=== PATIENT | male | born 1995 | race Hispanic/Latino ===

== ENCOUNTER 2018-01-20 01:26 | Emergency (ER) | payer OTHER ==
[2018-01-20] MEDS ORDERED: MEPERIDINE HCL 50 MG/ML AMP ONE (02:06)
[2018-01-20] MEDS ORDERED: ONDANSETRON 4 MG (ODT) TAB ONE (02:06)
[2018-01-20] MEDS ORDERED: MEPERIDINE HCL 25 MG/0.5 ML ONE (02:06)
[2018-01-20 02:33] LABS: Urine Blood TRACE (NEG); Urine Glucose NEGATIVE (NEG); Urine Protein NEGATIVE (NEG)
[2018-01-20] MEDS ORDERED: KETOROLAC 30 MG/ML INJ ONE (03:26)
--- NOTE | 2018-01-20 03:31 | ER ---
Nurse's Notes [facility] Name: Hakan Ocasio IV Age: 22 yrs Sex: Male : 1995 Arrival Date: 01/20/2018 Time: :27 Bed 7 Private MD: Wm Jones Diagnosis: Acute low back pain. Possoble prolapsed intervertebral disc Presentation: 01/20 01:34 Presenting complaint: Patient states: that he was just sitting around and chilling then fc his back started to hurt all the way across his lower back. Also having right leg numbness. Denies any injury or lifting anything heavy. Transition of care: patient was not received from another setting of care. Onset of symptoms was January 19, 2018 at 15:00. Risk Assessment: Do you want to hurt yourself or someone else? Patient reports no desire to harm self or others. Initial Sepsis Screen: Does the patient meet any 2 criteria? No. Patient's initial sepsis screen is negative. Does the patient have a suspected source of infection? No. Patient's initial sepsis screen is negative. Care prior to arrival: None. 01:34 Method Of Arrival: Ambulatory 01:34 Acuity: LAMIN 4 fc Historical: - Allergies: 01:36 No Known Allergies; fc - Home Meds: 01:36 None [Active]; fc - PMHx: 01:36 None; fc - PSHx: 01:36 None; fc - Immunization history:: Last tetanus immunization: up to date Flu vaccine is not up to date. - Social history:: Smoking status: Patient/guardian denies using tobacco, Patient/guardian denies using alcohol, street drugs. - Ebola Screening: : Patient negative for fever greater than or equal to 101.5 degrees Fahrenheit, and additional compatible Ebola Virus Disease symptoms Patient denies exposure to infectious person Patient denies travel to an Ebola-affected area in the 21 days before illness onset. Screenin:37 Abuse screen: Denies threats or abuse. Nutritional screening: No deficits noted. fc Tuberculosis screening: No symptoms or risk factors identified. Fall Risk None identified. Assessment: 01:36 General: Appears in no apparent distress. uncomfortable, Behavior is calm, cooperative, jd3 appropriate for age. Pain: Complains of pain in back Quality of pain is described as sharp, shooting, Aggravated by increased activity. Neuro: Level of Consciousness is awake, alert, obeys commands, Oriented to person, place, time, situation. Cardiovascular: Capillary refill < 3 seconds Patient's skin is warm and dry. Respiratory: Airway is patent Respiratory effort is even, unlabored, Respiratory pattern is regular, symmetrical. GI: No signs and/or symptoms were reported involving the gastrointestinal system. Abdomen is round non-distended. : No signs and/or symptoms were reported regarding the genitourinary system. EENT: No signs and/or symptoms were reported regarding the EENT system. Derm: Skin is intact, Skin is dry, Skin is normal, Skin temperature is warm. Musculoskeletal: Circulation, motion, and sensation intact. Range of motion: intact in all extremities. 02:59 Reassessment: Patient appears in no apparent distress at this time. No changes from jd3 previously documented assessment. Patient and/or family updated on plan of care and expected duration. Pain level reassessed. Patient is alert, oriented x 3, equal unlabored respirations, skin warm/dry/pink. Vital Signs: 01:36 BP 158 / 102; Pulse 82; Resp 18; Temp 98.3(O); Pulse Ox 100% on R/A; Weight 90.72 kg fc (R); Height 5 ft. 8 in. (172.72 cm) (R); Pain 10/10; 02:59 BP 113 / 78; Pulse 80; Resp 17 S; Pulse Ox 100% on R/A; jd3 01:36 Body Mass Index 30.41 (90.72 kg, 172.72 cm) ED Course: 01:27 Patient arrived in ED. am2 01:27 Wm Jones MD is Private Physician. am2 01:29 Jay Salgado MD is Attending Physician. pkl 01:36 Triage completed. fc 01:36 Galileo Craft RN is Primary Nurse. jd3 01:36 Arm band placed on Patient placed in an exam room, on a stretcher. fc 01:37 Patient has correct armband on for positive identification. Bed in low position. Call light in reach. 02:07 Urine collected: clean catch specimen, clear. cb2 02:26 CT Stone Protocol In Process Unspecified. EDMS 02:30 CT completed. Patient tolerated procedure well. Patient moved to CT via wheelchair. Patient moved back from CT. 03:29 Wm Jones MD is Referral Physician. pkl 03:40 No provider procedures requiring assistance completed. Patient did not have IV access jd3 during this emergency room visit. Administered Medications: 02:04 Drug: Demerol 75 mg Route: IM; Site: left deltoid; jd3 03:00 Follow up: Response: No adverse reaction jd3 02:04 Drug: Zofran 4 mg Route: PO; jd3 03:00 Follow up: Response: No adverse reaction jd3 03:23 Drug: TORadol 60 mg Route: IM; Site: right gluteus; jd3 03:41 Follow up: Response: No adverse reaction jd3 Outcome: 03:30 Discharge ordered by MD. pkl 03:40 Discharged to home ambulatory, with family. jd3 03:40 Condition: stable 03:40 Discharge instructions given to patient, family, Instructed on discharge instructions, follow up and referral plans. medication usage, Demonstrated understanding of instructions, follow-up care, medications, Prescriptions given X 2. 03:41 Patient left the ED. jd3 Signatures: Dispatcher [employer] EDMS Jay Salgado MD MD pkl Mendel Thomas Felicia, RN RN Christina Prater Christian cb2 Davies, Jonathon RN RN jd3
--- NOTE | 2018-01-20 03:31 | EDPHYS ---
Physician Documentation [facility] Name: Haakn Ocasio IV Age: 22 yrs Sex: Male : 1995 Arrival Date: 01/20/2018 Time: :27 Bed 7 Private MD: Wm Jones ED Physician Jay Salgado HPI: 01/20 01:56 This 22 yrs old Male presents to ER via Ambulatory with complaints of Low Back pkl Pain, Leg Pain. 01:56 The patient presents with pain that is acute, with no known mechanism of injury. The pkl symptoms are located in the low back. The pain radiates to the right thigh. Onset: The symptoms/episode began/occurred today. The patient has not experienced similar symptoms in the past. Historical: - Allergies: 01:36 No Known Allergies; fc - Home Meds: 01:36 None [Active]; fc - PMHx: 01:36 None; fc - PSHx: 01:36 None; fc - Immunization history:: Last tetanus immunization: up to date Flu vaccine is not up to date. - Social history:: Smoking status: Patient/guardian denies using tobacco, Patient/guardian denies using alcohol, street drugs. - Ebola Screening: : Patient negative for fever greater than or equal to 101.5 degrees Fahrenheit, and additional compatible Ebola Virus Disease symptoms Patient denies exposure to infectious person Patient denies travel to an Ebola-affected area in the 21 days before illness onset. ROS: 01:56 Eyes: Negative for injury, pain, redness, and discharge, ENT: Negative for injury, pkl pain, and discharge, Neck: Negative for injury, pain, and swelling, Cardiovascular: Negative for chest pain, palpitations, and edema, Respiratory: Negative for shortness of breath, cough, wheezing, and pleuritic chest pain, Abdomen/GI: Negative for abdominal pain, nausea, vomiting, diarrhea, and constipation. 01:56 Back: Positive for of the lower back. 01:56 : Negative for urinary symptoms. 01:56 MS/extremity: Negative for acute changes. 01:56 Skin: Negative for rash. 01:56 Neuro: Negative for altered mental status. Exam: 01:56 Head/Face: Normocephalic, atraumatic. Eyes: Pupils equal round and reactive to light, pkl extra-ocular motions intact. Lids and lashes normal. Conjunctiva and sclera are non-icteric and not injected. Cornea within normal limits. Periorbital areas with no swelling, redness, or edema. ENT: Nares patent. No nasal discharge, no septal abnormalities noted. Tympanic membranes are normal and external auditory canals are clear. Oropharynx with no redness, swelling, or masses, exudates, or evidence of obstruction, uvula midline. Mucous membranes moist. Neck: Trachea midline, no thyromegaly or masses palpated, and no cervical lymphadenopathy. Supple, full range of motion without nuchal rigidity, or vertebral point tenderness. No Meningismus. Chest/axilla: Normal chest wall appearance and motion. Nontender with no deformity. No lesions are appreciated. Cardiovascular: Regular rate and rhythm with a normal S1 and S2. No gallops, murmurs, or rubs. Normal PMI, no JVD. No pulse deficits. Respiratory: Lungs have equal breath sounds bilaterally, clear to auscultation and percussion. No rales, rhonchi or wheezes noted. No increased work of breathing, no retractions or nasal flaring. Abdomen/GI: Soft, non-tender, with normal bowel sounds. No distension or tympany. No guarding or rebound. No evidence of tenderness throughout. 01:56 Back: pain, that is moderate, of the lower back, Straight leg raises: right lower extremity illicits pain, at 30 degrees. 01:56 : Exam negative for acute changes. 01:56 Musculoskeletal/extremity: Exam is negative for acute changes. 01:56 Skin: Exam negative for rash. 01:56 Neuro: Orientation: is normal, Memory: is normal, Motor: is normal. Vital Signs: 01:36 BP 158 / 102; Pulse 82; Resp 18; Temp 98.3(O); Pulse Ox 100% on R/A; Weight 90.72 kg fc (R); Height 5 ft. 8 in. (172.72 cm) (R); Pain 10/10; 02:59 BP 113 / 78; Pulse 80; Resp 17 S; Pulse Ox 100% on R/A; jd3 01:36 Body Mass Index 30.41 (90.72 kg, 172.72 cm) MDM: 01:30 Patient medically screened. pkl 03:28 Data reviewed: vital signs, nurses notes, lab test result(s), radiologic studies, CT pkl scan. ED course: Discussed lab. and CT Scan results. Advised MRI lumbar spines if not better.. 01/20 02:20 Order name: Urine Dipstick--Ancillary (enter results); Complete Time: 03:18 ms 01/20 02:06 Order name: CT Stone Protocol pkl Administered Medications: 02:04 Drug: Demerol 75 mg Route: IM; Site: left deltoid; jd3 03:00 Follow up: Response: No adverse reaction jd3 02:04 Drug: Zofran 4 mg Route: PO; jd3 03:00 Follow up: Response: No adverse reaction jd3 03:23 Drug: TORadol 60 mg Route: IM; Site: right gluteus; jd3 03:41 Follow up: Response: No adverse reaction jd3 Disposition: 01/20/18 03:30 Discharged to Home. Impression: Acute low back pain. Possoble prolapsed intervertebral disc. - Condition is Stable. - Prescriptions for Ultram 50 mg Oral Tablet - take 1 tablet by ORAL route every 8 hours As needed; 30 tablet. Cyclobenzaprine 5 mg Oral Tablet - take 1 tablet by ORAL route 2 times per day As needed; 15 tablet. - Medication Reconciliation Form, Thank You Letter, Antibiotic Education, Prescription Opioid Use form. - Follow up: Wm Jones MD; When: 2 - 3 days; Reason: Re-evaluation by your physician. - Problem is new. - Symptoms have improved. Signatures: Dispatcher [employer] EDMS Jay Salgado MD MD pkMamie Rdz RN RN Galileo Craft RN RN jd3 Corrections: (The following items were deleted from the chart) 03:41 03:30 01/20/2018 03:30 Discharged to Home. Impression: Acute low back pain. Possoble jd3 prolapsed intervertebral disc. Condition is Stable. Forms are Medication Reconciliation Form, Thank You Letter, Antibiotic Education, Prescription Opioid Use. Follow up: Wm Jones; When: 2 - 3 days; Reason: Re-evaluation by your physician. Problem is new. Symptoms have improved. pkl
[2018-01-20 03:45] VITALS: TEMP 98.3; O2SAT 100
[2018-01-20 03:47] VITALS: BP 113/78
--- NOTE | 2018-01-20 07:06 | RAD REPORT ---
EXAM DESCRIPTION: CT - Stone Protocol - 01/20/2018 4:15 am CLINICAL HISTORY: Abdominal pain, back pain A preliminary report was provided at the time of the study and reviewed prior to final report. COMPARISON: October 2014 TECHNIQUE: Axial 5 mm thick images were obtained without oral or IV contrast. The [id number] span s the entirety of the system partially obscuring uppermost abdomen and lung bases. All CT scans are performed using dose optimization technique as appropriate and may include automated exposure control or mA/KV adjustment according to patient size. FINDINGS: No hydronephrosis is present and no obstructing ureteral calculi. No suspicious renal mass es. Isodense masses and pyelonephritis are not excluded on a stone protocol CT scan. No urinary bladd er suspicious finding. Imaged portions of the liver, spleen and pancreas show no suspicious findings on non-contrast imaging . No gallbladder or biliary tree abnormality identified. No significant adrenal finding. No suspicious bowel findings. Appendix is normal. No acute GI process. No mass or bulky lymphadenopathy. A small fat only umbilical hernia is present. No free air, free flu id or inflammatory stranding. No significant bony abnormality. IMPRESSION: Negative CT stone protocol study for acute or significant finding. Isodense masses and pyelonephritis are not excluded on stone protocol technique.
== END 2018-01-20 03:41 | disposition home or self-care (01) ==
LOC: ER 01:26
DX: M54.5 Low back pain (principal)
CPT/HCPCS: 74176; 76377; 81003; 96372; 99284; J2175

== ENCOUNTER 2018-06-09 08:22 | Emergency (ER) | payer OTHER ==
--- NOTE | 2018-06-09 09:36 | ER ---
Nurse's Notes [facility] Name: Hakan Ocasio IV Age: 22 yrs Sex: Male : 1995 Arrival Date: 06/09/2018 Time: 08:26 Bed 12 Private MD: Wm Jones Diagnosis: Acute pharyngitis Presentation: 06/09 08:46 Presenting complaint: Patient states: sore throat, cough, congestion X 1 week. iw Transition of care: patient was not received from another setting of care. Onset of symptoms was June 02, 2018. Risk Assessment: Do you want to hurt yourself or someone else? Patient reports no desire to harm self or others. Initial Sepsis Screen: Does the patient meet any 2 criteria? No. Patient's initial sepsis screen is negative. Does the patient have a suspected source of infection? No. Patient's initial sepsis screen is negative. Care prior to arrival: None. 08:46 Method Of Arrival: Ambulatory iw 08:46 Acuity: LAMIN 4 iw Triage Assessment: 09:00 General: Appears in no apparent distress. Behavior is calm. iw Historical: - Allergies: 08:47 No Known Allergies; iw - Home Meds: 08:47 None [Active]; iw - PMHx: 08:47 None; iw - PSHx: 08:47 None; iw - Immunization history:: Adult Immunizations up to date. - Social history:: Smoking status: Patient/guardian denies using tobacco. - Ebola Screening: : Patient negative for fever greater than or equal to 101.5 degrees Fahrenheit, and additional compatible Ebola Virus Disease symptoms Patient denies exposure to infectious person Patient denies travel to an Ebola-affected area in the 21 days before illness onset No symptoms or risks identified at this time. Screenin:58 Abuse screen: Denies threats or abuse. Denies injuries from another. Nutritional iw screening: No deficits noted. Tuberculosis screening: No symptoms or risk factors identified. Fall Risk None identified. Assessment: 08:50 General: Appears in no apparent distress. comfortable, Behavior is calm, cooperative. iw Pain: Complains of pain in throat. Neuro: Level of Consciousness is awake, alert, obeys commands, Oriented to person, place, time, situation, Moves all extremities. Full function. Cardiovascular: Patient's skin is warm and dry. Respiratory: Airway is patent Respiratory effort is even, unlabored, Breath sounds are clear bilaterally. EENT: Throat is reddened has enlarged tonsils bilaterally with gag reflex present. Derm: Skin is intact, is healthy with good turgor, Skin is. Musculoskeletal: Range of motion: intact in all extremities. Vital Signs: 08:47 BP 146 / 85; Pulse 98; Resp 16 S; Pulse Ox 100% on R/A; Weight 90.72 kg; Height 5 ft. 9 iw in. (175.26 cm); Pain 10/10; 08:47 Body Mass Index 29.53 (90.72 kg, 175.26 cm) iw ED Course: 08:26 Patient arrived in ED. mr 08:26 Wm Jones MD is Private Physician. mr 08:36 [facility] pm1 08:36 Judd Kay MD is Attending Physician. pm1 08:43 Joanne Carmichael RN is Primary Nurse. iw 08:47 Triage completed. iw 08:47 Arm band placed on. iw 08:50 Patient has correct armband on for positive identification. iw 09:58 No provider procedures requiring assistance completed. Patient did not have IV access iw during this emergency room visit. Administered Medications: No medications were administered Outcome: 09:35 Discharge ordered by MD. pm1 09:58 Discharged to home ambulatory. iw 09:58 Condition: good 09:58 Discharge instructions given to patient, Instructed on discharge instructions, follow up and referral plans. medication usage, Demonstrated understanding of instructions, follow-up care, medications, Prescriptions given X 1. 09:59 Patient left the ED. iw Signatures: Lexii Dailey mr Joanne Carmichael, ТАТЬЯНА RN iw Doyle Gonzalez NP AUT[employer] SERVICER pm1
--- NOTE | 2018-06-09 09:36 | EDPHYS ---
Physician Documentation [facility] Name: Hakan Ocasio IV Age: 22 yrs Sex: Male : 1995 Arrival Date: 06/09/2018 Time: 08:26 Bed 12 Private MD: Wm Jones ED Physician Judd Kay HPI: 06/09 09:32 This 22 yrs old Male presents to ER via Ambulatory with complaints of Sore pm1 Throat, Congestion. 09:32 The patient presents with sore throat. The patient describes throat pain as raw, pm1 scratchy. Onset: The symptoms/episode began/occurred 1 week(s) ago. Severity of symptoms: in the emergency department the symptoms are unchanged. Modifying factors: The symptoms are alleviated by nothing, the symptoms are aggravated by swallowing, Patient's oral intake status: good unaware of sick contact. Associated signs and symptoms: Pertinent positives: cough, fever, Pertinent negatives diarrhea, dysphagia, earache, headache, nausea, shortness of breath, vomiting. The patient has not recently seen a physician. Historical: - Allergies: 08:47 No Known Allergies; iw - Home Meds: 08:47 None [Active]; iw - PMHx: 08:47 None; iw - PSHx: 08:47 None; iw - Immunization history:: Adult Immunizations up to date. - Social history:: Smoking status: Patient/guardian denies using tobacco. - Ebola Screening: : Patient negative for fever greater than or equal to 101.5 degrees Fahrenheit, and additional compatible Ebola Virus Disease symptoms Patient denies exposure to infectious person Patient denies travel to an Ebola-affected area in the 21 days before illness onset No symptoms or risks identified at this time. ROS: 09:32 Eyes: Negative for injury, pain, redness, and discharge. pm1 09:32 Neck: Negative for injury, pain, and swelling, Cardiovascular: Negative for chest pain, palpitations, and edema. 09:32 Abdomen/GI: Negative for abdominal pain, nausea, vomiting, diarrhea, and constipation, Back: Negative for injury and pain, : Negative for injury, bleeding, discharge, and swelling, MS/Extremity: Negative for injury and deformity, Skin: Negative for injury, rash, and discoloration, Neuro: Negative for headache, weakness, numbness, tingling, and seizure. 09:32 Constitutional: Positive for fever, Negative for poor PO intake. 09:32 ENT: Positive for sore throat, Negative for drainage from ear(s), ear pain. 09:32 Respiratory: Positive for cough, Negative for shortness of breath, sputum production, wheezing. Exam: 09:32 Constitutional: This is a well developed, well nourished patient who is awake, alert, pm1 and in no acute distress. Head/Face: Normocephalic, atraumatic. Eyes: Pupils equal round and reactive to light, extra-ocular motions intact. Lids and lashes normal. Conjunctiva and sclera are non-icteric and not injected. Cornea within normal limits. Periorbital areas with no swelling, redness, or edema. ENT: Nares patent. No nasal discharge, no septal abnormalities noted. Tympanic membranes are normal and external auditory canals are clear. Oropharynx with no redness, swelling, or masses, exudates, or evidence of obstruction, uvula midline. Mucous membranes moist. Neck: Trachea midline, no thyromegaly or masses palpated, and no cervical lymphadenopathy. Supple, full range of motion without nuchal rigidity, or vertebral point tenderness. No Meningismus. Chest/axilla: Normal chest wall appearance and motion. Nontender with no deformity. No lesions are appreciated. Cardiovascular: Regular rate and rhythm with a normal S1 and S2. No gallops, murmurs, or rubs. Normal PMI, no JVD. No pulse deficits. Respiratory: Lungs have equal breath sounds bilaterally, clear to auscultation and percussion. No rales, rhonchi or wheezes noted. No increased work of breathing, no retractions or nasal flaring. Abdomen/GI: Soft, non-tender, with normal bowel sounds. No distension or tympany. No guarding or rebound. No evidence of tenderness throughout. Back: No spinal tenderness. No costovertebral tenderness. Full range of motion. Skin: Warm, dry with normal turgor. Normal color with no rashes, no lesions, and no evidence of cellulitis. MS/ Extremity: Pulses equal, no cyanosis. Neurovascular intact. Full, normal range of motion. 09:32 Neuro: Orientation: is normal, Motor: is normal, moves all fours. Vital Signs: 08:47 BP 146 / 85; Pulse 98; Resp 16 S; Pulse Ox 100% on R/A; Weight 90.72 kg; Height 5 ft. 9 iw in. (175.26 cm); Pain 10/10; 08:47 Body Mass Index 29.53 (90.72 kg, 175.26 cm) iw MDM: 08:36 Patient medically screened. pm1 09:34 Data reviewed: vital signs. Data interpreted: Pulse oximetry: on room air is 100 %. pm1 Interpretation: normal. Counseling: I had a detailed discussion with the patient and/or guardian regarding: the historical points, exam findings, and any diagnostic results supporting the discharge/admit diagnosis, lab results, the need for outpatient follow up, to return to the emergency department if symptoms worsen or persist or if there are any questions or concerns that arise at home. 06/09 08:43 Order name: Flu; Complete Time: 09:25 pm1 06/09 08:43 Order name: Strep; Complete Time: 09:05 pm1 06/09 09:05 Order name: Throat Culture EDMS Administered Medications: No medications were administered Disposition: 11:56 Co-signature as Attending Physician, Judd Kay MD I agree with the assessment and [facility] plan of care. Disposition: 06/09/18 09:35 Discharged to Home. Impression: Acute pharyngitis. - Condition is Stable. - Discharge Instructions: Pharyngitis. - Prescriptions for Tessalon Perles 100 mg Oral Capsule - take 1 capsule by ORAL route every 8 hours As needed; 15 capsule. - Medication Reconciliation Form, Thank You Letter, Antibiotic Education form. - Follow up: Emergency Department; When: As needed; Reason: Worsening of condition. Follow up: Private Physician; When: 2 - 3 days; Reason: Recheck today's complaints, Continuance of care, Re-evaluation by your physician. - Problem is new. - Symptoms have improved. Signatures: Dispatcher [employer] EDTN Judd Kay MD MD cha Williams, Irene, RN RN iw Doyle Gonzalez NP [employer]ACHINE TENDER pm1 Corrections: (The following items were deleted from the chart) 09:59 09:35 06/09/2018 09:35 Discharged to Home. Impression: Acute pharyngitis. Condition is iw Stable. Forms are Medication Reconciliation Form, Thank You Letter, Antibiotic Education, Prescription Opioid Use. Follow up: Emergency Department; When: As needed; Reason: Worsening of condition. Follow up: Private Physician; When: 2 - 3 days; Reason: Recheck today's complaints, Continuance of care, Re-evaluation by your physician. Problem is new. Symptoms have improved. pm1
[2018-06-09 10:07] VITALS: BP 146/85; O2SAT 100
== END 2018-06-09 09:59 | disposition home or self-care (01) ==
LOC: ER 08:22
DX: J02.9 Acute pharyngitis, unspecified (principal)
CPT/HCPCS: 87070; 87081; 87804; 99281

== ENCOUNTER 2018-08-27 21:08 | Emergency (ER) | payer OTHER ==
[2018-08-27] MEDS ORDERED: ONDANSETRON 4 MG/2 ML VIAL ONE (21:47)
[2018-08-27] MEDS ORDERED: NA CHLORIDE 0.9% 1,000 ML ONE (21:47)
[2018-08-27 21:50] LABS: Absolute Lymphocytes (CBC) 3.3 K/uL (0.7-4.9); Absolute Monocytes 0.5 K/uL (0.1-1.3); Absolute Neutrophil 3.4 K/uL (1.8-8.0); Basophils % 0.5 % (0-1.3); Lymphocytes % 45.2 % (15.3-44.8); MPV 10.3 fL (7.6-11.3); RBC Red Blood Cell Count 4.83 M/uL (4.33-5.43)
[2018-08-27] MEDS ORDERED: MORPHINE 4 MG/ML SYR ONE (21:53)
[2018-08-27 22:07] LABS: Albumin 4.2 g/dL (3.4-5.0); Bilirubin Direct 0.2 mg/dL (0-0.2); Bilirubin Total 0.4 mg/dL (0.2-1.0); Potassium 3.8 mmol/L (3.5-5.1); Protein, Total 7.6 g/dL (6.4-8.2)
[2018-08-27 22:52] LABS: Urine Blood NEGATIVE (NEG); Urine Glucose NEGATIVE (NEG); Urine Protein 1+ (NEG); Urine pH 7.5 (5.0-7.0)
--- NOTE | 2018-08-27 22:54 | EDPHYS ---
Physician Documentation [facility] Name: Hakan Ocasio IV Age: 23 yrs Sex: Male : 1995 Arrival Date: 08/27/2018 Time: 21:10 Bed 17 Private MD: ED Physician Brooks Looney HPI: 08/27 21:28 This 23 yrs old Male presents to ER via Ambulatory with complaints of Back jmm Pain. 21:28 The patient presents with pain that is acute. Onset: The symptoms/episode jmm began/occurred gradually, 1 week(s) ago. Associated signs and symptoms: Pertinent positives: vomiting, Pertinent negatives: fever. This is a 23 year old male that presents to the ED with complaints of left flank pain beginning approx 1 week ago. Patient states working out daily but states he did cardio over the past week. 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 Patient is concerned about his kidney. Denies fever. . Historical: - Allergies: 21:30 No Known Allergies; jd3 - Home Meds: 21:30 None [Active]; jd3 - PMHx: 21:30 None; jd3 - PSHx: 21:30 None; jd3 - Immunization history:: Adult Immunizations up to date. - Social history:: Smoking status: Patient/guardian denies using tobacco. - Ebola Screening: : Patient negative for fever greater than or equal to 101.5 degrees Fahrenheit, and additional compatible Ebola Virus Disease symptoms. ROS: 21:28 Constitutional: Negative for fever, chills, and weight loss, Cardiovascular: Negative jmm for chest pain, palpitations, and edema, Respiratory: Negative for shortness of breath, cough, wheezing, and pleuritic chest pain. 21:28 Abdomen/GI: Positive for vomiting. 21:28 Back: Positive for flank pain, on the left. 21:28 All other systems are negative. Exam: 21:28 Constitutional: This is a well developed, well nourished patient who is awake, alert, jmm and in no acute distress. Head/Face: atraumatic. Eyes: EOMI, no conjunctival erythema appreciated ENT: Moist Mucus Membranes Neck: Trachea midline, Supple Chest/axilla: Normal chest wall appearance and motion. Cardiovascular: Regular rate and rhythm. No edema appreciated Respiratory: Normal respirations, no respiratory distress appreciated 21:28 Skin: General appearance color normal MS/ Extremity: Moves all extremities, no obvious deformities appreciated, no edema noted to the lower extremities Neuro: Awake and alert, normal gait Psych: Behavior is normal, Mood is normal, Patient is cooperative and pleasant 21:28 Abdomen/GI: Inspection: abdomen appears normal, Bowel sounds: normal, Palpation: abdomen is soft and non-tender. 21:28 Back: CVA tenderness, that is moderate, is noted on the left. Vital Signs: 21:31 BP 129 / 83; Pulse 65; Resp 16 S; Temp 98.2(O); Pulse Ox 99% on R/A; Weight 88.45 kg jd3 (R); Height 5 ft. 9 in. (175.26 cm) (R); Pain 10/10; 22:57 BP 124 / 90; Pulse 65; Resp 16; Temp 98.2; Pulse Ox 99% on R/A; Pain 0/10; ak1 21:31 Body Mass Index 28.80 (88.45 kg, 175.26 cm) jd3 MDM: 21:28 Patient medically screened. [facility] 22:52 Data reviewed: vital signs, nurses notes. Counseling: I had a detailed discussion with susannah the patient and/or guardian regarding: the historical points, exam findings, and any diagnostic results supporting the discharge/admit diagnosis, lab results, radiology results, the need for outpatient follow up, to return to the emergency department if symptoms worsen or persist or if there are any questions or concerns that arise at home. Response to treatment: the patient's symptoms have markedly improved after treatment, and as a result, I will discharge patient. ED course: Imaging studies and labs unremarkable. Patient advised to follow up with pcp and otherwise given strict return precautions. patient understood and agrees with the plan of care. . 08/27 21:28 Order name: Basic Metabolic Panel; Complete Time: 22:12 [facility] 08/27 21:28 Order name: CBC with Diff; Complete Time: 22:04 [facility] 08/27 21:28 Order name: Creatinine for Radiology; Complete Time: 22:12 [facility] 08/27 21:28 Order name: Hepatic Function; Complete Time: 22:12 [facility] 08/27 21:28 Order name: Lipase; Complete Time: 22:12 [facility] 08/27 22:19 Order name: Urine Dipstick--Ancillary (enter results); Complete Time: 22:54 [facility] 08/27 21:28 Order name: IV Saline Lock; Complete Time: 21:55 [facility] 08/27 21:28 Order name: Labs collected and sent; Complete Time: 21:55 [facility] 08/27 21:28 Order name: CT Stone Protocol [facility] Administered Medications: 21:53 Drug: Zofran 4 mg Route: IVP; Site: right antecubital; rr5 23:00 Follow up: Response: No adverse reaction ak1 21:56 Drug: NS 0.9% 1000 ml Route: IV; Rate: 1 bolus; Site: right antecubital; rr5 23:00 Follow up: IV Status: Completed infusion; IV Intake: 1000ml ak1 21:57 Drug: morphine 4 mg Route: IVP; Site: right antecubital; rr5 23:00 Follow up: Response: No adverse reaction; Pain is decreased ak1 Disposition: 08/27/18 22:53 Discharged to Home. Impression: Low back pain. - Condition is Stable. - Discharge Instructions: Back Pain, Adult. - Prescriptions for orphenadrine citrate 100 mg Oral Tablet Sustained Release - take 1 tablet by ORAL route 2 times per day As needed; 20 tablet. - Medication Reconciliation Form, Thank You Letter, Antibiotic Education, Prescription Opioid Use form. - Follow up: Private Physician; When: 2 - 3 days; Reason: Recheck today's complaints, Continuance of care, Re-evaluation by your physician. Addendum: 08/31/2018 16:37 Co-signature as Attending Physician, Brooks Looney MD I agree with the assessment and t w4 plan of care. Signatures: Dispatcher [employer] EDMS Florentino Philippe PA PA jmm Krenek, Amber RN RN ak1 Galileo Craft RN RN Brooks Chinchilla MD MD tw4 Clifton Gustafson RN RN rr5 Corrections: (The following items were deleted from the chart) 08/27 23:04 22:53 08/27/2018 22:53 Discharged to Home. Impression: Low back pain. Condition is ak1 Stable. Forms are Medication Reconciliation Form, Thank You Letter, Antibiotic Education, Prescription Opioid Use. Follow up: Private Physician; When: 2 - 3 days; Reason: Recheck today's complaints, Continuance of care, Re-evaluation by your physician. susannah
--- NOTE | 2018-08-27 22:54 | ER ---
Nurse's Notes [facility] Name: Hakan Ocasio IV Age: 23 yrs Sex: Male : 1995 Arrival Date: 08/27/2018 Time: 21:10 Bed 17 Private MD: Diagnosis: Low back pain Presentation: 08/27 21:27 Presenting complaint: Patient states: "I am having back pain over the last week, but I jd3 just ignored it. it got worse today. I don't know what it is, may be my kidneys.". Transition of care: patient was not received from another setting of care. Onset of symptoms was August 21, 2018. Risk Assessment: Do you want to hurt yourself or someone else? Patient reports no desire to harm self or others. Initial Sepsis Screen: Does the patient meet any 2 criteria? No. Patient's initial sepsis screen is negative. Does the patient have a suspected source of infection? No. Patient's initial sepsis screen is negative. Care prior to arrival: None. 21:27 Method Of Arrival: Ambulatory [facility] 21:27 Acuity: LAMIN 3 jd3 Triage Assessment: 22:57 General: Appears in no apparent distress. Behavior is calm, cooperative. Pain: ak1 Complains of pain in back. EENT: No signs and/or symptoms were reported regarding the EENT system. Neuro: No deficits noted. Cardiovascular: No deficits noted. Respiratory: No deficits noted. GI: No signs and/or symptoms were reported involving the gastrointestinal system. : No signs and/or symptoms were reported regarding the genitourinary system. Derm: No signs and/or symptoms reported regarding the dermatologic system. Musculoskeletal: Range of motion: intact in all extremities, Reports pain in back. Historical: - Allergies: 21:30 No Known Allergies; jd3 - Home Meds: 21:30 None [Active]; jd3 - PMHx: 21:30 None; jd3 - PSHx: 21:30 None; jd3 - Immunization history:: Adult Immunizations up to date. - Social history:: Smoking status: Patient/guardian denies using tobacco. - Ebola Screening: : Patient negative for fever greater than or equal to 101.5 degrees Fahrenheit, and additional compatible Ebola Virus Disease symptoms. Screenin:56 Abuse screen: Denies threats or abuse. Denies injuries from another. Nutritional ak1 screening: No deficits noted. Tuberculosis screening: No symptoms or risk factors identified. Fall Risk None identified. Assessment: 22:59 Reassessment: Patient appears in no apparent distress at this time. No changes from ak1 previously documented assessment. Patient and/or family updated on plan of care and expected duration. Pain level reassessed. Patient is alert, oriented x 3, equal unlabored respirations, skin warm/dry/pink. pt with steady gait at discharge. pt left with family. see triage assessment for original assessment Patient states feeling better. Vital Signs: 21:31 BP 129 / 83; Pulse 65; Resp 16 S; Temp 98.2(O); Pulse Ox 99% on R/A; Weight 88.45 kg jd3 (R); Height 5 ft. 9 in. (175.26 cm) (R); Pain 10/10; 22:57 BP 124 / 90; Pulse 65; Resp 16; Temp 98.2; Pulse Ox 99% on R/A; Pain 0/10; ak1 21:31 Body Mass Index 28.80 (88.45 kg, 175.26 cm) jd3 ED Course: 21:10 Patient arrived in ED. ag3 21:24 Florentino Philippe PA is PHCP. jmm 21:24 Brooks Looney MD is Attending Physician. jmm 21:27 An Ramírez, RN is Primary Nurse. ak1 21:28 Triage completed. jd3 21:31 Arm band placed on. jd3 21:[address] via wheelchair. nj 21:45 Inserted saline lock: 22 gauge in right antecubital area, using aseptic technique. cm6 21:54 CT Stone Protocol In Process Unspecified. EDMS 22:56 Patient has correct armband on for positive identification. Bed in low position. Call ak1 light in reach. Side rails up X 1. Adult w/ patient. Pulse ox on. NIBP on. 22:56 No provider procedures requiring assistance completed. ak1 23:00 IV discontinued, intact, bleeding controlled, No redness/swelling at site. Pressure ak1 dressing applied. Administered Medications: 21:53 Drug: Zofran 4 mg Route: IVP; Site: right antecubital; rr5 23:00 Follow up: Response: No adverse reaction ak1 21:56 Drug: NS 0.9% 1000 ml Route: IV; Rate: 1 bolus; Site: right antecubital; rr5 23:00 Follow up: IV Status: Completed infusion; IV Intake: 1000ml ak1 21:57 Drug: morphine 4 mg Route: IVP; Site: right antecubital; rr5 23:00 Follow up: Response: No adverse reaction; Pain is decreased ak1 Intake: 23:00 IV: 1000ml; Total: 1000ml. ak1 Outcome: 22:53 Discharge ordered by . susannah 22:58 Discharged to home ambulatory, with family. ak1 22:58 Condition: stable 22:58 Discharge instructions given to patient, family, Instructed on discharge instructions, follow up and referral plans. no drinking with medication, no driving heavy equipment, medication usage, Demonstrated understanding of instructions, follow-up care, medications, Prescriptions given X 1. 23:04 Patient left the ED. ak1 Signatures: Dispatcher [employer] EDMS Florentino Philippe PA PA jmm Krenek, Amber RN RN ak1 Delgado Lilly Jonathon, RN RN jd3 Jeniffer Quezada3 Clifton Gustafson RN RN rr5 Ignacia Tijerina cm6
[2018-08-28 01:05] VITALS: TEMP 98.2; O2SAT 99
[2018-08-28 01:07] VITALS: BP 124/90
--- NOTE | 2018-08-30 11:34 | RAD REPORT ---
EXAM DESCRIPTION: CT - Stone Protocol - 08/28/2018 4:36 am CLINICAL HISTORY: Left flank pain. COMPARISON: None. TECHNIQUE: CT scan of the abdomen and pelvis was performed without IV contrast. This exam was perfor med according to our departmental dose-optimization program, which includes automated exposure contro l, adjustment of the mA and/or kV according to patient size and/or use of iterative reconstruction te chnique. FINDINGS: The lung bases are clear. No pleural or pericardial effusions. There is no hiatal hernia. The liver, spleen, pancreas, gallbladder, adrenal glands, and kidneys are unremarkable. No urinary st ones are seen. The pelvic organs are also unremarkable. No small bowel obstruction. The appendix is normal. There is no evidence of diverticulitis. No intrap eritoneal free fluid or free air is identified. The aorta is normal caliber. No acute bony findings are seen. There is no pathologic body wall hernia . IMPRESSION: No acute abdominal or pelvic pathology. Electronically signed by: Karlo Jamison MD 08/27/2018 10:19 PM CDT Due to temporary technical issues with the PACS/Fluency reporting system, reports are being signed by the in house radiologist as a courtesy to ensure prompt reporting. The interpreting radiologist is f ully responsible for the content of the report.
== END 2018-08-27 23:04 | disposition home or self-care (01) ==
LOC: ER 21:08
DX: M54.5 Low back pain (principal)
CPT/HCPCS: 36415; 74176; 76377; 80048; 80076; 81003; 83690; 85025; 96361; 96374; 96375; 99284; J2405; J7030